=== PATIENT | female | born 1985 | race Caucasian/White ===

== ENCOUNTER 2016-09-13 11:18 | Emergency (ER) | payer MEDICAID, OTHER ==
[~2016-09-13] VITALS: Ht 160 cm; Wt 71.4 kg
[~2016-09-13 11:18] MED LIST: CLOM50TA2 PO; METF500T PO; PNVPAK PO
[2016-09-13 11:22] VITALS: BP 138/99; PULSE 96; RESP 16; TEMP 98.7; O2SAT 98
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
--- NOTE | 2016-09-13 12:12 | RADHPO ---
EXAM DATE/TIME: 09/13/2016 11:34 [place] COMPARISON: No previous studies available for comparison. INDICATIONS : Left shoulder pain after fall. MEDICAL HISTORY : None. SURGICAL HISTORY : None. ENCOUNTER: Initial ACUITY: 2 days PAIN SCORE: 10/10 LOCATION: Left lateral shoulder FINDINGS: Multiple view examination of the left shoulder demonstrates no evidence of fracture or dislocation. The glenohumeral and acromioclavicular joints are maintained. There is normal range of motion betwee n internal and external rotation. Bony mineralization is normal. CONCLUSION: No acute disease. Merlin Savage MD FACR on September 13, 2016 at 12:08 Board Certified Radiologist. This report was verified electronically.
== END 2016-09-13 12:34 | disposition home or self-care (01) ==
LOC: PHEFT 11:18
DX: M25.512 Pain in left shoulder (principal); F17.200 Nicotine dependence, unspecified, uncomplicated; W22.09XA Striking against other stationary object, initial encounter
CPT/HCPCS: 73030; 99283